=== PATIENT | male | born 1990 | race Caucasian/White ===

== ENCOUNTER 2016-08-19 13:41 | Emergency (ER) | payer OTHER ==
[2016-08-19 13:48] VITALS: TEMP 97.5
[2016-08-19] MEDS ORDERED: diphenhydrAMINE 25 MG CAP PO STA (14:04)
[2016-08-19] MEDS ORDERED: FAMOTIDINE 20 MG TAB PO STA (14:05)
--- NOTE | 2016-08-19 14:16 | ED ---
General Adult HPI - General Chief complaint: Recheck/Abnormal Lab/Rx Stated complaint: Nausea. Poss allergic reaction Time Seen by Provider: 08/19/16 13:51 Source: patient, RN notes reviewed Mode of arrival: wheelchair Limitations: no limitations - History of Present Illness Initial comments: Chief complaint and history of present illness a 25-year-old male here with friends. The patient reports over the past 2 weeks he's had an irritating case of poison doris. He went to an urgent care yesterday received one shot of steroids was placed on steroids to be taken twice daily. The patient reports today that he felt overly anxious his heart was pounding, he felt nauseous. Both these symptoms have subsided. She's never taken steroids before. The only medications he is taking occasional Benadryl and vitamins. No drugs. - Related Data Home Medications Medication Instructions Recorded Confirmed Hydrochlorothiazide [Hydrodiuril] 12.5 mg PO DAILY 05/11/14 07/13/15 Multivitamins, Thera [Multivitamin 1 tab PO DAILY 08/19/16 08/19/16 (formulary)] predniSONE [predniSONE] 20 mg PO BID 08/19/16 08/19/16 Allergies Allergy/AdvReac Type Severity Reaction Status Date / Time Penicillins Allergy Rash/Hives Verified 08/19/16 14:18 Review of Systems ROS Statement: Those systems with pertinent positive or pertinent negative responses have been documented in the HPI. Review of systems no headache or visual acuity changes no chest pain or shortness of breath this time did have palpitations felt like his heart was beating. Nausea earlier gone now one loose stool today. Feels better now. No headache no chest pain no shortness of breath no GI/ problems at this time. All systems are reviewed. Past medical problems hypertension for which she takes HCTZ. GERD problems in the past none now. The patient's surgeries include bilateral shoulder tendon surgery. Family history no cancers. Patient has penicillin ALLERGIES he gets hives. Nonsmoker nondrinker. ROS Other: All systems not noted in ROS Statement are negative. Past Medical History Past Medical History: Hypertension Additional Past Medical History / Comment(s): epigastric pain for past few weeks , worse w/eating History of Any Multi-Drug Resistant Organisms: None Reported Past Surgical History: Orthopedic Surgery Additional Past Surgical History / Comment(s): luzma. shoulder & bicep surg. Past Anesthesia/Blood Transfusion Reactions: No Reported Reaction Past Psychological History: No Psychological Hx Reported Smoking Status: Never smoker Past Alcohol Use History: None Reported Past Drug Use History: None Reported - Past Family History Mother Family Medical History: No Reported History General Exam - General Exam Comments Initial Comments: General: The patient is awake and alert, was complaining of feeling over agitated with mild nausea and felt flushed as well as rapid heartbeat. All of these symptoms have subsided. Vital signs temp 97.5, pulse 105, respiratory rate 20, pulse ox 96% room air blood pressure 177/86. Eye: Pupils are equal, round and reactive to light, extra-ocular movements are intact ; there is normal conjunctiva bilaterally. No signs of icterus. Ears, nose, mouth and throat: There are moist mucous membranes and no oral lesions. Neck: The neck is supple, there is no tenderness , no anterior cervical lymphadenopathy. Thyroid not enlarged. Cardiovascular: Tachycardic heart rate 105.. No murmur, rub or gallop is appreciated. Respiratory: Lungs are clear to auscultation, respirations are non-labored, breath sounds are equal. No wheezes, stridor, rales, or rhonchi. Gastrointestinal: Soft, non-distended, non-tender abdomen without masses or organomegaly noted. There is no rebound or guarding present. No CVA tenderness. Bowel sounds are unremarkable. Back: There is no tenderness to palpation in the midline. There is no obvious deformity. No rashes noted. Musculoskeletal: Normal ROM, no tenderness, There is no pedal edema. There is no calf tenderness or swelling. Sensation intact. Pulses equal bilaterally 2+. Neurological: CN II-XII intact, There are no obvious motor or sensory deficits. Coordination appears grossly intact. Speech is normal. Skin: Linear areas of contact dermatitis on his chest. Some on his antecubital fossa' s. Typical of contact dermatitispoison doris . Limitations: no limitations Course Vital Signs 08/19/16 13:46 Temperature 97.5 F L Pulse Rate 105 H Respiratory 20 Rate Blood Pressure 177/86 O2 Sat by Pulse 96 Oximetry EKG Findings - EKG Comments: EKG Findings:: EKG was done and reviewed at 1430 showed normal sinus rhythm with an incomplete right bundle branch block. No acute ST elevation no ectopy no ischemic changes. Rate 64 TN interval is 164 QRS [address] Ware Medical Decision Making - Medical Decision Making Medical decision-making. The patient's EKG was within normal limits heart rate at that time was done a 64 he arrived at 108. He felt it was faster earlier. His bili determined the patient should not take anymore the steroids. In order to control his discomfort with his poison doris advised to use Pepcid 20 mg twice a day and Benadryl 50 mg 3 times a day for the next several days. Use topical calamine lotion. Also follow-up with family physician return emergency room as needed. Disposition Clinical Impression: Adverse reaction to drug in therapeutic use Disposition: HOME SELF-CARE Condition: Fair Instructions: Adverse Drug Reaction (ED) Additional Instructions: Stop steroid use. Use Benadryl 50 mg 3 times daily for the next several days and Pepcid 20 mg twice daily for the next several days as well as topical calamine lotion for contact dermatitis. Follow-up family physician return emergency medicine needed Referrals: Kirit Caldwell III, MD [Primary Care Provider] - 1-2 days Time of Disposition: 14:47
[2016-08-19 14:56] VITALS: BP 144/67; PULSE 53; RESP 18
== END 2016-08-19 14:55 | disposition home or self-care (01) ==
LOC: EC 13:41
DX: L25.1 Unspecified contact dermatitis due to drugs in contact with skin (principal); T38.0X5A Adverse effect of glucocorticoids and synthetic analogues, initial encounter; R11.0 Nausea; R00.0 Tachycardia, unspecified; R45.1 Restlessness and agitation; I10 Essential (primary) hypertension; Z79.52 Long term (current) use of systemic steroids; Z79.899 Other long term (current) drug therapy; Z88.0 Allergy status to penicillin
CPT/HCPCS: 36415; 80320; 93005; 99283

== ENCOUNTER 2017-11-20 16:57 | Emergency (ER) | payer OTHER ==
[2017-11-20 17:05] VITALS: BP 157/91; PULSE 74; RESP 20; TEMP 98.2
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
== END 2017-11-20 17:54 | disposition home or self-care (01) ==
LOC: EC 16:57
DX: R51 Headache (principal); Z79.899 Other long term (current) drug therapy; Z88.0 Allergy status to penicillin; V43.62XA Car passenger injured in collision with other type car in traffic accident, initial encounter; Y92.69 Other specified industrial and construction area as the place of occurrence of the external cause; Y99.0 Civilian activity done for income or pay
CPT/HCPCS: 99283

== ENCOUNTER 2020-04-18 08:13 | Day surgery (SDC) | payer BC, OTHER ==
[2020-04-17 08:48] VITALS: BMI 27.2
[~2020-04-18 08:13] MED LIST: ACETAMINOPHEN TAB 500 MG TAB PO PRN; DEXAMETHASONE SOD PHOSPHATE 4 MG/ML 1 ML VIAL IV ONE; HEPARIN SODIUM,PORCINE 5,000 UNIT/ML 1 ML VIAL SQ PRN; LIDOCAINE 1% (10MG/ML) FOR IV START INTRADERMA PRN; MIDAZOLAM 2 MG/2 ML VIAL IV PRN
[2020-04-18 09:10] VITALS: RESP 16
[2020-04-18] MEDS: ONDANSETRON 4 MG/2 ML VIAL IVP ONE ×2 (09:11→12:39)
[2020-04-18] MEDS: LACTATED RINGERS 1,000 ML IV SCH ×2 (09:11→13:29)
[2020-04-18] MEDS ORDERED: SCOPOLAMINE 1.5MG/72HR PATCH TRANSDERM ONE (09:12)
--- NOTE | 2020-04-18 10:35 | P.GSHP ---
History of Present Illness H&P Date: 04/18/20 Chief Complaint: Right upper quadrant pain This a 29-year-old male with complaints of right quadrant pain. Patient's workup found evidence of chronic cholecystitis. He presents today for laparoscopic cholecystectomy Past Medical History Past Medical History: Hypertension Additional Past Medical History / Comment(s): rt side epigastric pain, worse w/eating, hx migraines, was on BP medication until 2 yrs ago, History of Any Multi-Drug Resistant Organisms: None Reported Past Surgical History: Orthopedic Surgery, Tonsillectomy Additional Past Surgical History / Comment(s): luzma. shoulder & bicep surg. Past Anesthesia/Blood Transfusion Reactions: Motion Sickness Smoking Status: Never smoker - Past Family History Mother Family Medical History: No Reported History Medications and Allergies Home Medications Medication Instructions Recorded Confirmed Type Fish Oil(Dose Unknown) 1 tab PO DAILY 04/17/20 04/18/20 History Multivitamins, Thera [Multivitamin 1 tab PO DAILY 04/17/20 04/18/20 History (formulary)] Allergies Allergy/AdvReac Type Severity Reaction Status Date / Time Penicillins Allergy Rash/Hives/elevated Verified 04/18/20 08:37 heart rate Surgical - Exam Vital Signs Temp Pulse Resp BP Pulse Ox 98.2 F 62 16 140/89 95 04/18/20 08:39 04/18/20 08:39 04/18/20 08:39 04/18/20 08:39 04/18/20 08:39 - General well developed, well nourished, no distress - Eyes PERRL - ENT normal pinna - Neck no masses - Respiratory normal expansion - Cardiovascular Rhythm: regular - Abdomen Abdomen: soft, non tender Assessment and Plan Assessment: Chronic cholecystitis. We'll perform laparoscopic cholecystectomy
[2020-04-18] MEDS ORDERED: KETOROLAC 15 MG/ML 1 ML VIAL ONE (11:20)
[2020-04-18] MEDS ORDERED: HYDROmorphone (PF) 1 MG/ML ONE (11:20)
[2020-04-18] MEDS ORDERED: fentaNYL (PF) 50 MCG/ML 2 ML AMP ONE (11:20)
[2020-04-18] MEDS ORDERED: PROPOFOL 10 MG/ML 20 ML VIAL IV ONE (11:20)
[2020-04-18] MEDS ORDERED: MIDAZOLAM 2 MG/2 ML VIAL ONE (11:20)
[2020-04-18] MEDS ORDERED: NEOSTIGMINE 1 MG/ML 10 ML VIAL ONE (11:20)
[2020-04-18] MEDS ORDERED: ROCURONIUM 10 MG/ML (5 ML VIAL) IV ONE (11:20)
[2020-04-18] MEDS ORDERED: GLYCOPYRROLATE 0.2 MG/ML 2 ML VIAL ONE (11:20)
[2020-04-18] MEDS ORDERED: SUCCINYLCHOLINE CHLORIDE 100 MG/5 ML SYR IV ONE (11:20)
[2020-04-18] MEDS ORDERED: LIDOCAINE 1% INJ 10MG/ML (20 ML MDV) ONE (11:20)
[2020-04-18] MEDS ORDERED: BUPIVACAINE (PF) 0.25% 30 ML VIAL SQ ONE (11:45)
[2020-04-18] MEDS ORDERED: LACTATED RINGERS 1,000 ML IV ONE (11:46)
--- NOTE | 2020-04-18 12:09 | P.OP ---
Date of Procedure: 04/18/20 Preoperative Diagnosis: Cholecystitis Postoperative Diagnosis: Cholecystitis Procedure(s) Performed: Laparoscopic cholecystectomy Anesthesia: JAZZY Surgeon: Jorge Moeller Estimated Blood Loss (ml): 5 Pathology: other (Gallbladder) Condition: stable Disposition: PACU Description of Procedure: The patient was placed on the operating table. The patient received a general endotracheal tube anesthesia. The patients abdomen was prepped and draped in the usual sterile fashion. Through an infraumbilical stab incision, the fascia of the anterior abdominal wall was grasped with a pair of Kochers and then the Veress needle was placed in the peritoneal cavity. Position of the Veress needle was confirmed with positive drop test. The abdomen was then insufflated. After adequate insufflation, the 10 mm trocar was placed in the peritoneal cavity. Following this the laparoscope was placed in the peritoneal cavity. The patient was placed in the head-up, right side up position and then a 5 mm trocar was placed in the right lateral and right subcostal position under direct visualization. A 8 mm trocar was placed in the epigastric position. The gallbladder was grasped in the fundus and infundibulum. Traction on the gallbladder was placed in the lateral and the cephalad positions. The triangle of Calot was visualized.. The cystic duct was bluntly dissected until the union of the cystic duct and common bile duct was seen. A critical view of safety was achieved. The cystic duct was then divided and sealed with the Harmonic scissors. A PDS Endoloop was then placed throughout the cystic duct stump. The cystic artery divided and sealed with the Harmonic scissors. The gallbladder was then removed from the liver bed using Harmonic scissors. The gallbladder was then extracted through the epigastric port site. Operative field was checked for any bleeding spots and Harmonic scissors was used to coagulate the liver bed. The abdomen was irrigated. The trocars were removed. The skin was closed using interrupted 3-0 Vicryl suture. Dermabond dressing were applied. The patient tolerated the procedure well.
[2020-04-18 12:19] VITALS: TEMP 98
[2020-04-18] MEDS: HYDROmorphone 0.5 MG/0.5 ML SYRINGE IVP PRN ×2 (12:41→12:47)
[2020-04-18 15:06] VITALS: BP 127/77; PULSE 76
== END 2020-04-18 15:08 | disposition home or self-care (01) ==
LOC: OR 08:13
PROVIDERS: ATTEND Surgery
DX: K81.1 Chronic cholecystitis (principal); I10 Essential (primary) hypertension; Z98.890 Other specified postprocedural states; Z88.0 Allergy status to penicillin
CPT/HCPCS: 88304